=== PATIENT | female | born 1990 | race Caucasian/White ===

== ENCOUNTER 2024-03-15 22:45 | Emergency (ER) | payer BC, OTHER ==
[~2024-03-15] VITALS: Ht 157.5 cm; Wt 81.6 kg
[2024-03-15] MEDS ORDERED: ACETAMINOPHEN ES 500 MG TABLET ONE (23:33)
[2024-03-15] MEDS: ACETAMINOPHEN 325 MG TABLET PO ONE (23:56)
[2024-03-16] MEDS ORDERED: ACET325T53 PO (01:15)
[2024-03-16 01:29] VITALS: BP 134/61; TEMP 98; O2SAT 98
== END 2024-03-16 01:30 | disposition home or self-care (01) ==
LOC: ER 22:46
DX: M79.605 Pain in left leg (principal); Z88.1 Allergy status to other antibiotic agents
CPT/HCPCS: 73630-TC; 93971-TC